=== PATIENT | female | born 1995 | race African-American/Black ===

== ENCOUNTER 2019-12-19 14:53 | Inpatient (IN) | payer MEDICAID ==
[~2019-12-19] VITALS: Ht 170.2 cm; Wt 96.8 kg
[~2019-12-19 14:53] MED LIST: AMOX-367; HYDR-3237; PHEN-583; PRED20TA
[2019-12-25] MEDS ORDERED: OXYTOCIN 30U/ 0.9% NaCL 500ML 500 ML IV PRN (21:14)
[2019-12-25] MEDS ORDERED: AMPICILLIN 2 GM in SODIUM CHLORIDE 0.9% 100 ML IVPB STA (21:14)
[2019-12-25] MEDS ORDERED: OXYTOCIN 30U/ 0.9% NaCL 500ML 500 ML IV ONE (21:14)
[2019-12-25] MEDS ORDERED: D5%-LACTATED RINGERS 1,000 ML IV SCH (21:14)
[2019-12-25] MEDS ORDERED: LIDOCAINE 1%, 20ML ONE (21:20)
[2019-12-25] MEDS ORDERED: NEWBORN KIT ONE (21:20)
[2019-12-25] MEDS ORDERED: MISOPROSTOL 200 MCG TABLET ONE (21:21)
[2019-12-25] MEDS ORDERED: OXYTOCIN 30U/ 0.9% NaCL 500ML 500 ML ONE (21:21)
[2019-12-25] MEDS ORDERED: MISOPROSTOL 25 MCG TABLET ONE (21:21)
[2019-12-25] MEDS ORDERED: ONDANSETRON 2MG/ML, 2ML IVPush PRN (21:30)
[2019-12-25] MEDS ORDERED: MISOPROSTOL 25 MCG TABLET VG PRN (21:30)
[2019-12-25] MEDS: LACTATED RINGERS 1,000 ML IV SCH (21:30)
[2019-12-25] MEDS ORDERED: PLEASE ENTER HEIGHT AND WEIGHT MC SCH (21:30)
[2019-12-25] MEDS ORDERED: CALCIUM CARBONATE 500 MG TAB.CHEW PO PRN (21:30)
[2019-12-25] MEDS ORDERED: FENTANYL PF 100 MCG/2ML IVPush PRN (21:30)
[2019-12-25] MEDS ORDERED: SODIUM CITRATE/CITRIC ACID 30 ML UDC PO PRN (21:30)
[2019-12-25] MEDS ORDERED: ALUMINUM/MAG/SIMETHICONE 30 ML UDC PO PRN (21:30)
[2019-12-25] MEDS ORDERED: TERBUTALINE 1 MG/ML, 1ML IVPush PRN (21:30)
[2019-12-25] MEDS ORDERED: FENTANYL PF 100 MCG/2ML IV PRN (21:30)
[2019-12-25] MEDS ORDERED: TERBUTALINE 1 MG/ML, 1ML SQ PRN (21:30)
[2019-12-25 21:46] LABS: BASOPHILS # (AUTO) 0.03 x10^3/uL (0-0.1); BASOPHILS % (AUTO) 1 % (0-1); EOSINOPHILS # (AUTO) 0.06 x10^3/uL (0-0.4); EOSINOPHILS % (AUTO) 1 % (1-7); LYMPHOCYTES # (AUTO) 2.28 x10^3/uL (1-3.4); LYMPHOCYTES % (AUTO) 31 % (22-44); MD NO; MEAN CORPUSCULAR HEMOGLOBIN 29.4 pg (27.0-34.8); MEAN CORPUSCULAR HGB CONC 33.1 g/dL (32.4-35.8); MEAN CORPUSCULAR VOLUME 88.7 fL (80-100); MEAN PLATELET VOLUME 7.2 fL (7.4-10.4); MONOCYTES # (AUTO) 0.54 x10^3/uL (0.2-0.8); MONOCYTES % (AUTO) 7 % (2-9); NEUTROPHILS # (AUTO) 4.46 x10^3/uL (1.8-6.8); NEUTROPHILS % (AUTO) 60 % (42-75); PLATELET COUNT 312 x10^3/uL (130-400); RED BLOOD COUNT 4.13 x10^6/uL (3.82-5.3); RED CELL DISTRIBUTION WIDTH 12.4 % (9.6-15.2)
[2019-12-26] MEDS: LACTATED RINGERS 1,000 ML IV SCH ×3 (01:30→08:59)
[2019-12-26] MEDS ORDERED: CEFAZOLIN PMX 1GM/50ML 50 ML IVPB SCH (01:30)
[2019-12-26] MEDS ORDERED: MISOPROSTOL 25 MCG TABLET ONE (01:56)
[2019-12-26] MEDS ORDERED: FENTANYL/BUPIV./NS/PF 250 ML EPIDCONT SCH ×2 (04:34→09:01)
[2019-12-26] MEDS ORDERED: FENTANYL PF 100 MCG/2ML ONE (04:55)
[2019-12-26] MEDS ORDERED: FENTANYL PF 500 MCG, BUPIVACAINE/PF 0.5%, 30ML 62.5 ML in SODIUM CHLORIDE 0.9% 177.5 ML EPIDCONT SCH (05:00)
[2019-12-26] MEDS: AMPICILLIN 1 GM in SODIUM CHLORIDE 0.9% 50 ML IVPB SCH ×6 (06:00→21:30)
[2019-12-26] MEDS ORDERED: LACTATED RINGERS 1,000 ML IV SCH (09:01)
[2019-12-26] MEDS ORDERED: BUPIVACAINE 0.25% ONE ×2 (09:03→09:04)
[2019-12-26] MEDS ORDERED: LIDOCAINE/PF 1.5% EPI 1:200K, 10 ML ONE (09:03)
[2019-12-26] MEDS ORDERED: EPHEDRINE 50 MG/ML, 1ML IVPush PRN (09:30)
[2019-12-26] MEDS ORDERED: LACTATED RINGERS 1,000 ML IVBOLUS PRN (09:30)
[2019-12-26] MEDS ORDERED: NALOXONE 0.4 MG/ML, 1ML IVPush PRN (09:30)
[2019-12-26] MEDS ORDERED: EPHEDRINE 50 MG/ML, 1ML ONE (10:05)
[2019-12-26] MEDS ORDERED: ONDANSETRON 2MG/ML, 2ML ONE (10:05)
[2019-12-26] MEDS ORDERED: TERBUTALINE 1 MG/ML, 1ML ONE (16:09)
[2019-12-26] MEDS ORDERED: PREN1TAB60 PO (17:51)
[2019-12-26] MEDS: OXYTOCIN 30U/ 0.9% NaCL 500ML 500 ML IV SCH (20:45)
[2019-12-26] MEDS ORDERED: RHOGAM FROM BLOOD BANK 1 NOTE EA IM/IV ONE (21:00)
[2019-12-26] MEDS ORDERED: DIPH,PERTUSS(ACELL),TET VAC/PF NC IM-VACC PRN (21:00)
[2019-12-26] MEDS ORDERED: MISOPROSTOL 200 MCG TABLET PR PRN (21:00)
[2019-12-26] MEDS ORDERED: METOCLOPRAMIDE 5 MG/ML, 2ML IV PRN (21:00)
[2019-12-26] MEDS ORDERED: OXYcodone/APAP 5/325MG TABLET PO PRN (21:00)
[2019-12-26] MEDS ORDERED: ONDANSETRON 2MG/ML, 2ML IV PRN (21:00)
[2019-12-26] MEDS ORDERED: ACETAMINOPHEN 325 MG TABLET PO PRN ×2 (21:00)
[2019-12-26] MEDS ORDERED: MAGNESIUM HYDROXIDE 8%, 30ML UDC PO PRN (21:00)
[2019-12-26] MEDS ORDERED: SIMETHICONE 80 MG CHEW TAB PO PRN (21:00)
[2019-12-26] MEDS ORDERED: OXYTOCIN 30U/ 0.9% NaCL 500ML 500 ML ONE (21:22)
[2019-12-26 22:45] VITALS: BP 106/67
[2019-12-27] MEDS: IBUPROFEN 600 MG TABLET PO PRN ×4 (02:52→23:02)
[2019-12-27 04:15] VITALS: BP 110/73
[2019-12-27 06:03] LABS: MEAN CORPUSCULAR HEMOGLOBIN 29.2 pg (27.0-34.8); MEAN CORPUSCULAR HGB CONC 32.5 g/dL (32.4-35.8); MEAN CORPUSCULAR VOLUME 89.8 fL (80-100); MEAN PLATELET VOLUME 7.5 fL (7.4-10.4); PLATELET COUNT 226 x10^3/uL (130-400); RED BLOOD COUNT 3.86 x10^6/uL (3.82-5.3)
[2019-12-27 06:04] LABS: BASOPHILS # (AUTO) 0.03 x10^3/uL (0-0.1); BASOPHILS % (AUTO) 0 % (0-1); EOSINOPHILS # (AUTO) 0.04 x10^3/uL (0-0.4); EOSINOPHILS % (AUTO) 0 % (1-7); LYMPHOCYTES # (AUTO) 1.34 x10^3/uL (1-3.4); LYMPHOCYTES % (AUTO) 11 % (22-44); MD SCAN; MONOCYTES % (AUTO) 6 % (2-9); NEUTROPHILS # (AUTO) 10.31 x10^3/uL (1.8-6.8); NEUTROPHILS % (AUTO) 82 % (42-75)
[2019-12-27] MEDS: OXYTOCIN 30U/ 0.9% NaCL 500ML 500 ML IV SCH ×2 (06:45→16:45)
[2019-12-27 07:40] VITALS: BP 108/71
[2019-12-27] MEDS ORDERED: PRENATAL VIT/IRON/FA 1 EACH TABLET PO SCH (09:00)
[2019-12-27] MEDS: DOCUSATE 100 MG CAPSULE PO PRN ×2 (09:05→18:32)
[2019-12-27 12:30] VITALS: BP 116/72
[2019-12-27 16:29] VITALS: BP 104/68
[2019-12-27] MEDS: OXYcodone/APAP 5/325MG TABLET PO PRN ×2 (18:32→23:02)
[2019-12-27 20:00] VITALS: BP 113/73
[2019-12-27] MEDS ORDERED: DIPH,PERTUSS(ACELL),TET VAC/PF NC IM-VACC ONE (20:00)
[2019-12-28] MEDS: IBUPROFEN 600 MG TABLET PO PRN (06:51)
[2019-12-28] MEDS: OXYcodone/APAP 5/325MG TABLET PO PRN (06:51)
[2019-12-28 07:10] VITALS: BP 111/73
[2019-12-28] MEDS ORDERED: IBUP-1222 PO (13:05)
[2019-12-28] MEDS ORDERED: MEASLES,MUMPS&RUBELLA VACC/PF 0.5 ML SQ-VACC ONE (14:00)
== END 2019-12-28 14:28 | disposition home or self-care (01) | DRG 806 ==
LOC: LDIP 12-25 21:11 → 2NW 12-26 22:42
PROVIDERS: ADMIT Obstetrics & Gynecology; ATTEND Obstetrics & Gynecology
PROC: 10E0XZZ Delivery of Products of Conception, External Approach (ICD-10-PCS; principal; 2019-12-26)
PROC: 0KQM0ZZ Repair Perineum Muscle, Open Approach (ICD-10-PCS; 2019-12-26)
PROC: 3E0R3BZ Introduction of Anesthetic Agent into Spinal Canal, Percutaneous Approach (ICD-10-PCS; 2019-12-26)
PROC: 00HU33Z Insertion of Infusion Device into Spinal Canal, Percutaneous Approach (ICD-10-PCS; 2019-12-26)
PROC: 10907ZC Drainage of Amniotic Fluid, Therapeutic from Products of Conception, Via Natural or Artificial Opening (ICD-10-PCS; 2019-12-26)
DX: O48.0 Post-term pregnancy (principal); G61.0 Guillain-Barre syndrome; Z37.0 Single live birth; O99.52 Diseases of the respiratory system complicating childbirth; J45.909 Unspecified asthma, uncomplicated; O70.1 Second degree perineal laceration during delivery; Z3A.40 40 weeks gestation of pregnancy
CPT/HCPCS: 36415; J7121; S0020; 85025; 86592; 86850; 86900; 90715; G0378; J0290; J3010; J3490; J2590; J7050; J7120